=== PATIENT | female | born 1955 | race Hispanic/Latino ===

== ENCOUNTER 2017-03-28 06:08 | Day surgery (SDC) | payer OTHER ==
[2017-03-28] MEDS ORDERED: Propofol 10 mg/ml Inj (20 ML) ONE ×2 (08:11→08:34)
[2017-03-28] MEDS ORDERED: Lidocaine 2% Inj (20ml) ONE (08:12)
--- NOTE | 2017-03-28 08:15 | CP.SDSHP ---
Same Day Surgery H & P - History Proposed Procedure: egd. colonoscopy Pre-Op Diagnosis: heartburn. epigastric pain. h/o colon polyps - Previous Medical/Surgical History Neuro: Backaches Misc: Other (IBS, Gastritis, Hiatal hernia, bladder prolapse) Previous Surgical History: ectopic . L/S spine surgery. R Carpal tunnel release - Allergies Allergies: Allergies No Known Allergies Allergy (Verified 03/28/17 06:25) - Physical Exam Vital Signs: Vital Signs 03/28/17 06:15 Temperature 97.8 F Pulse Rate 70 Respiratory 19 Rate Blood Pressure 132/86 O2 Sat by Pulse 98 Oximetry Mental Status: Alert & Oriented x3 Neuro: WNL Heart: WNL Lungs: WNL GI: WNL - Impression Impression: epigastric pain. heartburn. h/o colon polyps Pt. Evaluated Today:Candidate for Anesthesia & Procedure: Yes - Date & Time Date: 03/28/17 Time: 08:15 Short Stay Discharge - Short Stay Discharge Admitting Diagnosis/Reason for Visit: DYSPHAGIA / CONSTIPATION / HEARTBURN Disposition: HOME/ ROUTINE
[2017-03-28 09:13] VITALS: TEMP 98
[2017-03-28 09:40] VITALS: BP 133/67; PULSE 60; RESP 17; O2SAT 95
== END 2017-03-28 10:15 | disposition home or self-care (01) ==
LOC: C.ENDO 06:08
PROVIDERS: ATTEND Internal Medicine Gastroenterology
DX: K21.0 Gastro-esophageal reflux disease with esophagitis (principal); K29.50 Unspecified chronic gastritis without bleeding; K62.1 Rectal polyp; K57.90 Diverticulosis of intestine, part unspecified, without perforation or abscess without bleeding; K64.8 Other hemorrhoids
CPT/HCPCS: 43239; 45388; 88305; 88312; 88342; J2704

== ENCOUNTER 2019-01-11 20:10 | Emergency (ER) | payer MEDICAID ==
[2019-01-11 20:28] VITALS: BP 159/101; PULSE 94; RESP 20; TEMP 97.1; O2SAT 99
--- NOTE | 2019-01-11 20:52 | C.PDOC ---
History Of Present Illness 63 year old female presents to the ED complaining of right 4th digit pain that began today. States she was moving boxes and furniture today because she is moving into a new home when she noted a chuck on her right 4th finger. She noticed some redness in the same area hours later. States she is tender to palpation and rates pain 5/10. Reports she is unsure if it is a bug bite or it was sustained while moving objects. Denies any fever, chills, dizziness, weakness, chest pain, SOB, nausea, vomiting, rashes, or injuries. Chief Complaint (Nursing): Abnormal Skin Integrity History Per: Patient History/Exam Limitations: no limitations Onset/Duration Of Symptoms: Hrs Current Symptoms Are (Timing): Still Present Location Of Injury: Right: Hand (4th finger) Quality Of Symptoms: Painful Past Medical History Reviewed: Historical Data, Nursing Documentation, Vital Signs Vital Signs: Last Vital Signs Temp 97.1 F L 01/11/19 20:23 Pulse 94 H 01/11/19 20:23 Resp 20 01/11/19 20:23 BP 159/101 H 01/11/19 20:23 Pulse Ox 99 01/11/19 20:23 Primary Care Provider: Clinic,Med Surg - Medical History PMH: No Chronic Diseases Denies: Chronic Kidney Disease Surgical History: Endoscopy Family History: States: No Known Family Hx - Social History Hx Alcohol Use: No Hx Substance Use: No - Immunization History Hx Tetanus Toxoid Vaccination: No Hx Influenza Vaccination: No Hx Pneumococcal Vaccination: No Review Of Systems Constitutional: Negative for: Fever, Chills Cardiovascular: Negative for: Chest Pain Respiratory: Negative for: Cough, Shortness of Breath Gastrointestinal: Negative for: Nausea, Vomiting, Diarrhea Skin: Positive for: Other (right 4th digit pain and redness). Negative for: Rash Neurological: Negative for: Weakness, Dizziness Physical Exam - Physical Exam Appears: Non-toxic, No Acute Distress Skin: Warm, Dry, Other (pinpoint area of erythema to the proximal 4th digit. tender to palpation. no active drainage, no obvious puncture) Head: Atraumatic, Normacephalic Eye(s): bilateral: Normal Inspection, PERRL Nose: Normal Oral Mucosa: Moist Neck: Supple Chest: Symmetrical Cardiovascular: Rhythm Regular Respiratory: Normal Breath Sounds, No Rales, No Rhonchi, No Wheezing Extremity: Normal ROM, Tenderness, Capillary Refill (less than 2 sec to right hand ) Pulses: Left Radial: Normal, Right Radial: Normal Neurological/Psych: Oriented x3, Normal Speech, Normal Cognition, Normal Motor, Normal Sensation Gait: Steady ED Course And Treatment O2 Sat by Pulse Oximetry: 99 (RA) Pulse Ox Interpretation: Normal Medical Decision Making Medical Decision Making: - patient was also evaluated by Dr. Perez who has a low suspicion of bug bite ie Black recluse spider - patient advised that it is likely hematoma due to pinched skin - patient advised to chuck area with pen and return to ED if she notices enlargement - patient verbalizes understanding and is sable for discharge Disposition Counseled Patient/Family Regarding: Diagnosis, Need For Followup, Rx Given - Disposition Referrals: [facility] [Outside] Disposition: HOME/ ROUTINE Disposition Time: 20:50 Condition: STABLE Additional Instructions: Apply Neosporin at the site Follow up with PMD if symptoms persists Return to the ED if symptoms worsen Instructions: Wound Care (DC) Forms: [employer] (Urdu) - Clinical Impression Clinical Impression: Skin irritation - PA / [employer] / Resident Statement MD/DO has examined the patient and agrees with the treatment plan. - Scribe Statement The provider has reviewed the documentation as recorded by the Scribe Guillermina Verdin All medical record entries made by the Scribe were at my direction and personally dictated by me. I have reviewed the chart and agree that the record accurately reflects my personal performance of the history, physical exam, medical decision making, and the department course for this patient. I have also personally directed, reviewed, and agree with the discharge instructions and disposition.
== END 2019-01-11 20:57 | disposition home or self-care (01) ==
LOC: C.ER 20:10
DX: R23.8 Other skin changes (principal)